=== PATIENT | male | born 1995 | race Caucasian/White ===

== ENCOUNTER 2016-11-20 09:19 | Emergency (ER) | payer OTHER ==
[~2016-11-20] VITALS: Ht 170.2 cm; Wt 86.8 kg
[2016-11-20 09:22] VITALS: BP 126/91; PULSE 100; RESP 14; O2SAT 95
--- NOTE | 2016-11-20 09:30 | ED.REPORT ---
HPI-Dyspnea / Wheezing Date of Service Nov 20, 2016 ED Provider: Vito Alas DO The pt is a 21 y/o male with hx of asthma who presents to the ED complaining of SOB onset 2 days. He denies fever, chills, any other symptoms, other medical problems, or surgeries. The pt reports that he has been using his inhaler more than normal, causing it to run out this morning. He states that he was hospitalized previously "a long time ago" for his asthma. He has been on steroids previously, but denies current steroid use. Pt plans to refill his inhaler tomorrow. He is a non-smoker. Nursing Notes Stated Complaint: TROUBLE BREATHING/ASTHMA Chief Complaint: Respiratory Complaints Nursing Notes Reviewed: Yes Allergies: Coded Allergies: No Known Allergies (Unverified , 11/20/16) Scheduled Prednisone (PredniSONE) 20 Mg Tablet 40 MG PO DAILY General Time Seen by MD: 09:28 Chief Complaint Shortness of breath Hx Obtained From: Patient, Other family... (Mother) Arrived By: Walk-in Sudden in Onset?: No Onset Occurred: 2 days ago Symptom Duration: Since onset Location: : None Severity: Current: No pain currently Severity: Maximum: No pain Recent Healthcare: No recent doctor visit, No recent hospitalization Similar Sx Previous: Yes Past Medical History Past Medical History Reports: Asthma Past Surgical History None reported Smoking History Never Smoker Social History Alcohol Use: Denies alcohol use Drug Use: Denies drug use Other Social History: Good social support Ambulatory Status Independent Review of Systems Constitutional: Denies: Chills, Fever Respiratory: Reports: Shortness of breath, Denies: Non-productive cough Complete sys rev & neg: except as marked. Physical Exam Initial Vital Signs Vital Signs (First) Date Time Temp Pulse Resp B/P Pulse Ox O2 Delivery O2 Flow Rate FiO2 11/20/16 09:22 37.1 100 14 126/91 95 Room Air Initial VS: Reviewed Head / Eyes: Atraumatic, Normocephalic Abdomen / GI: Soft, Non-tender Extremities: Vascular intact, Neuro intact Skin: Warm, Dry, No cyanosis Neurologic: Alert, Oriented, Nonfocal Psychiatric: Mood/affect normal, Behavior normal General/Constitutional: Awake, Alert Neck: Atraumatic, Full range of motion Respiratory / Chest: Atraumatic Inspiratory and expiratory wheezes diffusely Cardiovascular: Heart rate NL, Regular rhythm, Heart sounds NL Re-Eval/Medical Decision Source of Hx: Old records Re-Evaluation/Progress : Time of Eval: 10:08 Re-Evaluation/Progress Note: Pt rechecked. Informed pt of plan for discharge. Pt understands and agrees with plan for discharge. F/U instructions and RTER warnings given. All questions addressed at this time. Counseled Regarding: Diagnosis, Need for follow-up, When/why to return to ED Discharge & Departure Impression: Primary Impression: Asthma Asthma severity: unspecified severity Asthma complication type: with acute exacerbation Qualified Code: J45.901 - Unspecified asthma with (acute) exacerbation Disposition: Home Discharge Condition All VS Reviewed: Yes Patient Instructions: Asthma (ED) Additional Instructions: Take prednisone as prescribed, get your albuterol inhaler refilled. Use albuterol nebulizers as prescribed as well. Follow-up with your regular doctor in the next 2 days and return to the ER as needed for worsening symptoms Referrals: Caty Flaherty Attestation Portion of this note were transcribed by Alon Schulte and Elizabeth Sewell. I, Dr. Alas personally performed the history, physical exam and medical decision-makiing; I reviewed and confirmed the accuracy of the information in the transcirbed note. Signed by: Alon Schulte and Yamilka Razo, 11/20/16. copies to: Caty Flaherty Timothy S DO Nov 20, 2016 09:30 Alon Schulte Nov 20, 2016 09:40 Elizabeth Pearson Nov 20, 2016 10:29
[2016-11-20] MEDS ORDERED: predniSONE 20 mg Tablet PO ONE (09:40)
[2016-11-20] MEDS ORDERED: Albuterol 2.5 mg/3 mL Inhalation Solution NEB ONE (09:40)
[2016-11-20 09:45] VITALS: RESP 23; O2SAT 94
[2016-11-20] MEDS ORDERED: PRE20 PO (10:12)
[2016-11-20 10:38] VITALS: BP 120/67; PULSE 118; RESP 18; O2SAT 100
== END 2016-11-20 10:39 | disposition home or self-care (01) ==
LOC: SED 09:19
DX: J45.901 Unspecified asthma with (acute) exacerbation (principal)
CPT/HCPCS: 94664; 99283; J7613